=== PATIENT | female | born 1940 | race Caucasian/White ===

== ENCOUNTER 2022-03-16 16:08 | Outpatient (CLI) | payer MEDICARE | END 2022-03-16 16:09 | disposition home or self-care (01) | LOC: SCSRAD 16:08 | PROVIDERS: ATTEND Family Medicine | DX: I63.9 Cerebral infarction, unspecified (principal); I10 Essential (primary) hypertension; W19.XXXS Unspecified fall, sequela; E78.5 Hyperlipidemia, unspecified; G50.0 Trigeminal neuralgia; G62.9 Polyneuropathy, unspecified | CPT/HCPCS: 36415; 71046; 80053; 80061; 80156; 84439; 84443; 85025 ==